=== PATIENT | male | born 1995 | race Caucasian/White ===

== ENCOUNTER 2017-12-26 13:13 | Emergency (ER) | payer OTHER ==
[~2017-12-26] VITALS: Ht 177.8 cm; Wt 76.2 kg
--- NOTE | 2017-12-26 13:13 | NUR ---
Patient BIBA BLS, transferred to bed 5. RN evaluating patient at bedside.
[2017-12-26 13:21] VITALS: BP 137/80
--- NOTE | 2017-12-26 13:23 | NUR ---
Dr. Price evaluating patient at bedside.
--- NOTE | 2017-12-26 13:26 | NUR ---
PT BIBA AMBULANCE TRIAGED IN ED BED 5, C/O WOUND TO L UPPER ARM THAT HAS MUSCLE EXPOSED AND SANGUINOUS DRAINAGE. DENIES PAIN. CMS INTACT. NO OTHER COMPLAINTS. DENIES CP/SOB AT THIS TIME. NAD NOTED, PLACED ON MONITOR. EDMD AT BEDSIDE.
--- NOTE | 2017-12-26 13:30 | NUR ---
OLD DRESSING REMOVE AND NEW DRESSING APPLIED BY RENATO NOYOLA WITH [employer] AT BEDSIDE
--- NOTE | 2017-12-26 13:31 | NUR ---
REMOVED OLD DRESSING FROM WOUND. VERBAL ORDER GIVEN BY DR. VERDIN TO FLUSH THE WOUND WITH NORMAL SALINE AND DRESS WITH XEROFORM AND WET TO DRY DRESSING. WOUND FLUSHED WITH APPROXIMATELY 200 mL OF NORMAL SALINE. WOUND DRESSED WITH A XEROFORM DRESSING. WET TO DRY DRESSING PLACED OVER THE XEROFORM DRESSING UTILIZING STERILE GAUZE. WRAPPED WITH GAUZE ROLL.
[2017-12-26 13:45] VITALS: BP 121/76
--- NOTE | 2017-12-26 13:45 | NUR ---
PT ADVICED TO STAY FOR D/C INTRUCTIONS AND MEDICATIONS FROM MD, ADVICED OF POSSIBLE COMPLICATIONS FOR AMA, PT AAO REFUSED, SIGNED AMA SHEET AND AMBULATES WITHOUT DIFFICULTY OUTSIDE OF ER VSS, DR HINKLE AND NURSERY HAND TEIDA NOTIFIED.
== END 2017-12-26 13:45 | disposition left against medical advice (07) ==
LOC: MED 13:13
DX: S41.112A Laceration without foreign body of left upper arm, initial encounter (principal); X58.XXXA Exposure to other specified factors, initial encounter; Y93.89 Activity, other specified; Y92.89 Other specified places as the place of occurrence of the external cause; Y99.8 Other external cause status
CPT/HCPCS: 99283